=== PATIENT | male | born 1960 | race Caucasian/White ===

== ENCOUNTER 2024-04-19 10:48 | Emergency (ER) | payer MEDICARE ==
[~2024-04-19] VITALS: Ht 172.7 cm; Wt 67.7 kg
[2024-04-19] MEDS ORDERED: AMLO10TA PO (11:08)
[2024-04-19] MEDS ORDERED: NOXI1TAB PO (11:08)
[2024-04-19] MEDS ORDERED: LOSA50TA28 PO (11:08)
[2024-04-19] MEDS ORDERED: OMEP40CA5 PO (11:08)
[2024-04-19] MEDS ORDERED: ATOR1TAB21 PO (11:08)
[2024-04-19 12:29] LABS: BASO # 0.1 10^3/uL (0.0-0.2); BASO % 0.7 % (0.0-1.0); EOS # 0.2 10^3/uL (0.0-0.5); EOS % 1.5 % (0.0-3.0); HEMOGLOBIN 15.5 g/dl (13.5-17.5); LYMPH # 2.1 10^3/uL (1.5-5.0); MEAN CORPUSCULAR HEMOGLOBIN 28.8 pg (27.0-33.0); MEAN CORPUSCULAR HGB CONC 34.4 g/dl (32.0-36.5); MEAN CORPUSCULAR VOLUME 83.5 fl (80.0-96.0); NEUTROPHILS % 67.6 % (36.0-66.0); PLATELET COUNT, AUTOMATED 272 10^3/uL (150-450); RED BLOOD COUNT 5.39 10^6/uL (4.30-6.10); WHITE BLOOD COUNT 10.3 10^3/uL (4.0-10.0)
[2024-04-19 12:40] LABS: ERYTHROCYTE SEDIMENTATION RATE 19 mm/hr (0-20)
[2024-04-19] MEDS: KETOROLAC 30 MG/ML 1ML VIAL IV ONE (13:08)
[2024-04-19] MEDS ORDERED: ISOVUE-370 76% 100ML VIAL As Ordered ONE (13:26)
[2024-04-19 14:34] LABS: Trichomonas vaginalis (AMP) NOT DETECTED (NEGATIVE)
[2024-04-19 14:58] LABS: GC DNA AMPLIFICATION NEGATIVE (NEGATIVE)
[2024-04-19] MEDS: LIDOCAINE 2% 5ML JELLY UROJET TOP ONE (15:26)
[2024-04-19] MEDS ORDERED: TAMS1CAP17 PO (16:00)
[2024-04-19] MEDS ORDERED: IBUP-1022 PO (16:00)
[2024-04-19] MEDS ORDERED: PROBCAP14 PO (16:00)
[2024-04-19] MEDS ORDERED: BACT800T5 PO (16:00)
[2024-04-19 16:16] VITALS: BP 149/85; TEMP 97.9; O2SAT 94
== END 2024-04-19 16:52 | disposition home or self-care (01) ==
LOC: M ED 10:48
DX: N50.812 Left testicular pain (principal); N40.1 Benign prostatic hyperplasia with lower urinary tract symptoms; K40.90 Unilateral inguinal hernia, without obstruction or gangrene, not specified as recurrent; K57.30 Diverticulosis of large intestine without perforation or abscess without bleeding; J98.11 Atelectasis; J47.9 Bronchiectasis, uncomplicated; K44.9 Diaphragmatic hernia without obstruction or gangrene; E78.5 Hyperlipidemia, unspecified; I10 Essential (primary) hypertension; K21.9 Gastro-esophageal reflux disease without esophagitis; F17.200 Nicotine dependence, unspecified, uncomplicated; Z79.02 Long term (current) use of antithrombotics/antiplatelets; Z79.83 Long term (current) use of bisphosphonates; Z79.811 Long term (current) use of aromatase inhibitors; Z79.899 Other long term (current) drug therapy
CPT/HCPCS: 36415; 74177; 76870; 80047; 81001; 85025; 85652; 86140; 87661; 87810; 87850; 93976; 96374; 99284; J1885; Q9967

== ENCOUNTER 2024-05-14 13:38 | Emergency (ER) | payer MEDICARE ==
[~2024-05-14] VITALS: Ht 172.7 cm; Wt 67.1 kg
[~2024-05-14 13:38] MED LIST: AMLO10TA PO; ATOR1TAB21 PO; BACT800T5 PO; IBUP-1022 PO; LOSA50TA28 PO; NOXI1TAB PO; OMEP40CA5 PO; PROBCAP14 PO; TAMS1CAP17 PO
[2024-05-14 13:40] VITALS: TEMP 97.6
[2024-05-14] MEDS: KETOROLAC 30 MG/ML 1ML VIAL IV ONE (16:28)
[2024-05-14 16:36] LABS: BASO # 0.1 10^3/uL (0.0-0.2); BASO % 0.7 % (0.0-1.0); EOS # 0.1 10^3/uL (0.0-0.5); EOS % 1.1 % (0.0-3.0); HEMATOCRIT 40.8 % (42.0-52.0); HEMOGLOBIN 13.9 g/dl (13.5-17.5); LYMPH # 1.5 10^3/uL (1.5-5.0); LYMPH % 18.5 % (24.0-44.0); MEAN CORPUSCULAR HEMOGLOBIN 28.8 pg (27.0-33.0); MEAN CORPUSCULAR HGB CONC 34.1 g/dl (32.0-36.5); MEAN CORPUSCULAR VOLUME 84.6 fl (80.0-96.0); MONO # 0.8 10^3/uL (0.0-0.8); NEUTROPHILS # 5.6 10^3/uL (1.5-8.5); NEUTROPHILS % 69.5 % (36.0-66.0); PLATELET COUNT, AUTOMATED 321 10^3/uL (150-450); RED BLOOD COUNT 4.82 10^6/uL (4.30-6.10); WHITE BLOOD COUNT 8.1 10^3/uL (4.0-10.0)
[2024-05-14 16:58] LABS: BLOOD UREA NITROGEN 10 MG/DL (9-23); CALCIUM LEVEL 9.3 MG/DL (8.3-10.6); CARBON DIOXIDE LEVEL 26 MMOL/L (20-31); CHLORIDE LEVEL 107 MMOL/L (98-107); CREATININE FOR GFR 0.74 MG/DL (0.70-1.30); GLOMERULAR FILTRATION RATE > 60.0 (>49); GLUCOSE, FASTING 102 MG/DL (74-106); SODIUM LEVEL 138 MMOL/L (136-145)
[2024-05-14] MEDS: LIDOCAINE 2% 5ML JELLY UROJET TOP ONE (18:01)
[2024-05-14 18:14] LABS: Trichomonas vaginalis (AMP) NOT DETECTED (NEGATIVE)
[2024-05-14 18:37] LABS: GC DNA AMPLIFICATION NEGATIVE (NEGATIVE)
[2024-05-14 18:54] VITALS: BP 134/76; O2SAT 99
== END 2024-05-14 18:58 | disposition left against medical advice (07) ==
LOC: M ED 13:38
DX: R33.9 Retention of urine, unspecified (principal); S30.22XA Contusion of scrotum and testes, initial encounter; I86.1 Scrotal varices; N50.3 Cyst of epididymis; I10 Essential (primary) hypertension; K21.9 Gastro-esophageal reflux disease without esophagitis; E78.5 Hyperlipidemia, unspecified; F17.200 Nicotine dependence, unspecified, uncomplicated; Y99.9 Unspecified external cause status; Y93.89 Activity, other specified; Y92.9 Unspecified place or not applicable; Z79.899 Other long term (current) drug therapy; Z79.02 Long term (current) use of antithrombotics/antiplatelets; Z53.9 Procedure and treatment not carried out, unspecified reason
CPT/HCPCS: 36415; 51701; 76870; 76882; 80048; 81001; 85025; 87661; 87810; 87850; 96374; 99284; J1885